=== PATIENT | female | born 1995 | race Hispanic/Latino ===

== ENCOUNTER 2018-06-08 21:28 | Inpatient (IN) | payer MEDICAID, SELFPAY ==
[2018-06-08 22:32] VITALS: BMI 26.5
[2018-06-08] MEDS ORDERED: Acetaminophen 500 MG TAB PO PRN (23:16)
[2018-06-08] MEDS ORDERED: Misoprostol 200 MCG TAB PR PRN (23:16)
[2018-06-08] MEDS ORDERED: Diphenoxylate HCl/Atropine Tablet PO PRN (23:16)
[2018-06-08] MEDS ORDERED: Methylergonovine 0.2 MG/ML VIAL IM PRN (23:16)
[2018-06-08] MEDS ORDERED: Carboprost 250 MCG/ML AMP IM PRN (23:16)
[2018-06-08] MEDS ORDERED: Promethazine HCl 25 MG/ML VIAL IM PRN (23:16)
[2018-06-08] MEDS ORDERED: Lidocaine 1% (PF) 30 ML VIAL SC PRN (23:16)
[2018-06-08] MEDS ORDERED: Ondansetron PF 4 MG/2 ML Vial IVP PRN (23:16)
--- NOTE | 2018-06-08 23:22 | PDOC.LDHP ---
Labor and Delivery H&P Chief complaint: contractions HPI: Mrs. Mora is a 22 y/o 39.5wk by 6.5 wk US presenting to LD for contractions beginning at 1999 She reports painful contractions starting in her back and rolling to her front, pelvic pressure associated. Denies LOF/bleeding, OTERO, CP or visual changes. Routine care up to this point at [facility]. Current gestational age (weeks): 39 (.5) Due date: 06/10/18 Dating criteria: first trimester ultrasound Grav: 2 Para: 1 OB History Details: hx of delivery Pre-E Current complications: none Abnormal US findings: No Current medications: pre-kamlesh vitamins, other (ASA last taken 4 days ago) Previous surgical history: none Allergies/Adverse Reactions: Allergies Allergy/AdvReac Type Severity Reaction Status Date / Time No Known Allergies Allergy Unverified 06/08/18 22:33 Social history: none - Physical Exam Vital signs reviewed and normal: yes General: NAD, breathing through contractions Heart: RRR Lungs: CTAB Abdomen: gravid Extremeties: no edema FHT: category 1 [place] contractions every: 2-3 mins - Vaginal Exam cm dilated: 9 Effacement: 90% Station: 0 - OB Labs Blood type: A RH: positive Antibody Screen: negative HIV: negative RPR: negative HEPSAg: negative 1 hour GCT: negative GBS: negative Urine drug screen: not done Rubella: immune - Assessment L&D Assessment: term patient in labor - Plan Plan: admit to L&D -: - monitor blood pressure closely, currently in normal range, asymptomatic - continuous monitoring - prepare for routine vaginal delivery, recheck in 1 hour/PRN
[2018-06-08 23:39] LABS: Hemoglobin 11.8 g/dL (12.0-16.0); Mean Corpuscular HGB CONC 32.8 g/dL (32.0-36.0); Mean Corpuscular Volume 88.5 fL (78.0-98.0); Mean Platelet Volume 8.1 fL (7.4-10.4); Platelet Count 278 thou/uL (130-400); RBC Distribution Width 12.3 % (11.5-14.5); Red Blood Cell (RBC) Count 4.07 mill/uL (4.20-5.40); White Blood Cell (WBC) Count 9.9 thou/uL (4.8-10.8)
[2018-06-09 00:16] LABS: Syphilis Antibody Nonreactive (Nonreactive); Syphilis Antibody Index 0.04 S/CO (<1.00 Non-Reactive)
[2018-06-09 00:34] LABS: HBSAg Index 0.15 S/CO (0-0.99); Hep B Surf Ag Non-Reactive S/CO (NonReactive)
[2018-06-09] MEDS: NS / Oxytocin 40 units/1000ml 1,000 ML IV PRN ×2 (00:35→02:43)
--- NOTE | 2018-06-09 01:30 | PDOC.OPDEL ---
OB Operative/Delivery Note Delivery Dr/Surgeon: Carlota Gresham [place] Pre-Delivery Diagnosis: active labor Procedure/Post Delivery Dx: spontaneous vaginal delivery Weeks gestation: 39 (.6) Anesthesia: none - Findings A Sex: female - 1 min: 8 - 5 min: 9 - Additional Findings/Plan Placenta delivered: spontaneous Repaired Obstetrical Laceration: none Estimated blood loss: 89 qbl Compilations/Other Findings: This is 22yo F @ 39.6wks who delivered a viable F infant at 0025 on 06/08. Following an uneventful antepartum course, a vigorous female was delivered over an intact perineum in the occipitoanterior position. Anterior Shoulder and then remainder of the body delivered. loose nuchal cord. The head was held down and mouth and nares were bulb suctioned. Cord clamped (after delayed cord clamping) and cut and cord blood collected. Placenta delivered intact (in the [place] presentation) with a 3 vessel cord noted. Fundal massage was performed and the fundus was firm. The cervix and vagina were inspected and found to be free of lacerations. Infant went to nursery in good condition for routine care. Apgars were 8/9 at 1 & 5 minutes, respectively. Patient tolerated delivery well and went to after routine recovery/care. Post delivery plan: routine recovery <Zain Good - Last Filed: 06/09/18 01:28> Attending Addendum - Attending Addendum Date/Time: 06/12/18 0855 I was present for the entire 2nd and 3rd stages of labor to supervise the delivery of MS Gomez's baby. <Anders Gresham - Last Filed: 06/12/18 08:56>
[2018-06-09] MEDS ORDERED: Ondansetron PF 4 MG/2 ML Vial IVP PRN (03:27)
[2018-06-09] MEDS ORDERED: NS / Oxytocin 40 units/1000ml 1,000 ML IV SCH (03:27)
[2018-06-09] MEDS ORDERED: Milk Of Magnesia 30 ML UDCUP PO PRN (03:27)
[2018-06-09] MEDS ORDERED: Bisacodyl 10 MG SUPP PR PRN (03:27)
[2018-06-09] MEDS ORDERED: Lanolin Ointment 7 GM TUBE TOP PRN (03:27)
[2018-06-09] MEDS: Ibuprofen 800 MG TAB PO SCH ×3 (06:08→21:21)
[2018-06-09] MEDS ORDERED: Adacel (T-DAP) 0.5 ML SYRINGE IM ONE (09:00)
[2018-06-09] MEDS: Docusate Calcium (SURFAK) 240 MG CAP PO SCH ×2 (09:46→21:21)
[2018-06-09] MEDS: Ferrous Sulfate 325 MG TAB PO SCH ×2 (09:46→15:25)
[2018-06-09] MEDS: Prenatal Vitamin 1 TAB PO SCH (09:46)
--- NOTE | 2018-06-09 14:00 | PDOC.PP ---
Post Progress Note Post Day #: 0 Subjective: Patient doing well this AM. No significant overnight events. No concerns. She seems eager to go home. PO intake tolerated: yes Flatus: yes Ambulation: yes Vital Signs (12 hours) Temp Pulse Resp BP Pulse Ox 06/09/18 11:55 98.5 F 61 20 91/55 L 06/09/18 08:00 98.4 F 60 20 108/55 L 96 06/09/18 04:40 98.3 F 60 20 97/54 L 97 06/09/18 03:30 98.6 F 60 20 100/56 L 96 Weight Weight 61.689 kg - Physical Examination General: NAD Cardiovascular: no m/r/g, RRR Respiratory: clear to auscultation bilaterally Abdominal: + bowel sounds, lochia (like that of a period), no distention, appropriately TTP Fundus firm & at: below level of umbilicus Neurological: no gross focal deficits Psychiatric: A&Ox3, normal affect Result Diagrams: 06/08/18 23:30 Additional Labs: Post Labs Blood Type A POSITIVE 06/08/18 23:30 Hep Bs Antigen Non-Reactive S/CO (NonReactive) 06/08/18 23:30 (1) (spontaneous vaginal delivery) Code(s): O80 - ENCOUNTER FOR FULL-TERM UNCOMPLICATED DELIVERY Status: Acute (2) Term delivered Code(s): O80 - ENCOUNTER FOR FULL-TERM UNCOMPLICATED DELIVERY Status: Acute - Assessment/Plan 22 year old at 39.5 wks delivered TAGA F infant at 00:25 on 06/09 via Term , delivered - Routine PP care - Plan for d/c home tomorrow morning/afternoon if mom and baby doing well - F/u with PNC in 2 weeks - Opting to breast and bottle feed - No complications - See plan as above Hx of PTD for Pre-E - No complications during this - Continue to monitor BP - No s/s of pre-e PP Dispo: Stable. Plan for d/c home tomorrow <Shelley Olsen - Last Filed: 06/09/18 14:03> Vital Signs (12 hours) Temp Pulse Resp BP Pulse Ox 06/09/18 16:00 98.7 F 68 20 103/60 97 06/09/18 11:55 98.5 F 61 20 91/55 L 06/09/18 08:00 98.4 F 60 20 108/55 L 96 Weight Weight 61.689 kg Result Diagrams: 06/08/18 23:30 Additional Labs: Post Labs Blood Type A POSITIVE 06/08/18 23:30 Hep Bs Antigen Non-Reactive S/CO (NonReactive) 06/08/18 23:30 <Jacques Parker - Last Filed: 06/09/18 19:36> Attending Addendum - Attending Addendum Date/Time: 06/09/181934 I evaluated the patient and discussed the management with Dr. Van. I agree with the Assessment and Plan documented above. <Jacques Parker - Last Filed: 06/09/18 19:36>
[2018-06-10] MEDS: Ibuprofen 800 MG TAB PO SCH ×2 (06:07→14:35)
[2018-06-10 08:15] VITALS: BP 103/54; TEMP 97.8
--- NOTE | 2018-06-10 08:26 | PDOC.PP ---
Post Progress Note Post Day #: 1 Subjective: Patient doing well this AM. No significant overnight events. Ready for d/c home. PO intake tolerated: yes Flatus: yes Ambulation: yes Vital Signs (12 hours) Temp Pulse Resp BP Pulse Ox 06/10/18 08:00 97.8 F 55 L 16 103/54 L 98 06/10/18 00:58 97.6 F 59 L 16 106/69 Weight Weight 61.689 kg - Physical Examination General: NAD Cardiovascular: no m/r/g, RRR Respiratory: clear to auscultation bilaterally Abdominal: + bowel sounds, lochia (minimal), no distention, appropriately TTP Fundus firm & at: below umbilicus Neurological: no gross focal deficits Psychiatric: A&Ox3, normal affect Result Diagrams: 06/08/18 23:30 Additional Labs: Post Labs Blood Type A POSITIVE 06/08/18 23:30 Hep Bs Antigen Non-Reactive S/CO (NonReactive) 06/08/18 23:30 (1) (spontaneous vaginal delivery) Code(s): O80 - ENCOUNTER FOR FULL-TERM UNCOMPLICATED DELIVERY Status: Acute (2) Term delivered Code(s): O80 - ENCOUNTER FOR FULL-TERM UNCOMPLICATED DELIVERY Status: Acute - Assessment/Plan 22 year old at 39.5 wks delivered TAGA F at 00:25 on 06/09 via Term , delivered - Routine PP care - Plan for d/c home tomorrow morning/afternoon if mom and baby doing well - F/u with PNC in 2 weeks - Opting to breast and bottle feed; doing so without difficulties - No complications - See plan as above Hx of PTD for Pre-E - No complications during this - BP remains wnl - No s/s of pre-e PP Dispo: Stable. Plan for d/c home today after bili check for . <Shelley Olsen - Last Filed: 06/10/18 08:26> Weight Weight 61.689 kg Result Diagrams: 06/08/18 23:30 Additional Labs: Post Labs Blood Type A POSITIVE 06/08/18 23:30 Hep Bs Antigen Non-Reactive S/CO (NonReactive) 06/08/18 23:30 <Jacques Parker - Last Filed: 06/11/18 10:29> Attending Addendum - Attending Addendum Date/Time: 06/11/18 1029 I personally evaluated the patient and discussed the management with Dr. Van. I agree with the History, Examination, Assessment and Plan documented above. <Jacques Parker - Last Filed: 06/11/18 10:29>
[2018-06-10] MEDS: Prenatal Vitamin 1 TAB PO SCH (08:44)
[2018-06-10] MEDS: Docusate Calcium (SURFAK) 240 MG CAP PO SCH (08:44)
[2018-06-10] MEDS: Ferrous Sulfate 325 MG TAB PO SCH (08:44)
== END 2018-06-10 15:30 | disposition home or self-care (01) | DRG 807 ==
LOC: L&D/OP 21:28 → L&D 06-09 00:14 → 3SE 06-09 03:51
PROVIDERS: ADMIT Obstetrics & Gynecology; ATTEND Obstetrics & Gynecology
PROC: 10E0XZZ Delivery of Products of Conception, External Approach (ICD-10-PCS; principal; 2018-06-09)
DX: O80 Encounter for full-term uncomplicated delivery (principal); Z37.0 Single live birth; Z3A.39 39 weeks gestation of pregnancy
CPT/HCPCS: 36415; 85027; 86780; 86850; 86900; 86901; 87340; 99285; J2001

== ENCOUNTER 2019-12-18 20:46 | Emergency (ER) | payer MEDICAID, OTHER ==
[2019-12-19 12:49] LABS: SARS-CoV-2 MS2 Positive; SARS-CoV-2 N Gene Negative; SARS-CoV-2 S Gene Negative; SARS-CoV-2 orf1ab Negative
== END 2019-12-18 22:05 | disposition home or self-care (01) ==
LOC: ERS 20:46
DX: R51 Headache (principal); R53.83 Other fatigue; R11.0 Nausea; Z20.828 Contact with and (suspected) exposure to other viral communicable diseases
CPT/HCPCS: 87635; 99284; U0003

== ENCOUNTER 2020-10-29 11:58 | Emergency (ER) | payer MEDICAID ==
[2020-10-29 12:50] LABS: #Lymphocytes 1.6 thou/uL (1.20-3.40); #Monocytes 0.5 thou/uL (0.11-0.59); #Neutrophils 2.9 thou/uL (1.40-6.50); %Eosinophils 0.8 % (0.0-10.0); %Lymphocytes 32.5 % (21.0-51.0); %Monocytes 9.3 % (0.0-10.0); %Neutrophils 56.4 % (42.0-75.0); Hemoglobin 12.9 g/dL (12.0-16.0); Mean Corpuscular HGB CONC 33.4 g/dL (32.0-36.0); Mean Corpuscular Hemoglobin 29.7 pg (27.0-31.0); Mean Corpuscular Volume 89.1 fL (78.0-98.0); Mean Platelet Volume 7.1 fL (7.4-10.4); Platelet Count 257 thou/uL (130-400); RBC Distribution Width 10.8 % (11.5-14.5); Red Blood Cell (RBC) Count 4.34 mill/uL (4.20-5.40); White Blood Cell (WBC) Count 5.1 thou/uL (4.8-10.8)
[2020-10-29 13:08] LABS: BHCG - Serum Negative (NEGATIVE); Pregs Control Background? CLEAR/WHITE (CLR/WHITE); Pregs Control Bar Appear? YES (CONTROL BAR)
[2020-10-29 13:13] LABS: ALT (SGPT) 12 U/L (8-55); AST (SGOT) 16 U/L (5-34); Albumin 4.2 g/dL (3.5-5.0); Alkaline Phosphatase 53 U/L (40-110); Anion Gap 10 mmol/L (10-20); BUN (Urea Nitrogen) 8 mg/dL (7.0-18.7); Bilirubin, Total 0.5 mg/dL (0.2-1.2); Calc. Creatinine Clearance 0 mL/min (70-130); Carbon Dioxide 27 mmol/L (22-29); Chloride 104 mmol/L (98-107); Globulin 3.4 g/dL (2.4-3.5); Glucose 91 mg/dL (70-105); Lipase 22 U/L (8-78); Protein, Total 7.6 g/dL (6.0-8.3); Sodium 137 mmol/L (136-145)
[2020-10-29 13:26] LABS: Bacteria/HPF 2+ HPF (None Seen); Bilirubin Negative (Negative); Blood, Urine Negative (Negative); Clarity Turbid (Clear); Glucose, Urine (Dipstick) Normal (Negative); Ketone, Urine Negative (Negative); Leukocyte 250 Leu/uL (Negative); Nitrite Negative (Negative); Protein, Urine (Dipstick) Negative (Neg-Trace); RBC/HPF 0-3 HPF (0-3); Specific Gravity, Urine 1.014 (1.002-1.036); Squamous Epithelial 21-50 HPF (0-3); Urobilinogen Normal mg/dL (Less than 2); WBC/HPF 0-3 HPF (0-3); pH, Urine 7.5 (5.0-9.0)
== END 2020-10-29 14:55 | disposition home or self-care (01) ==
LOC: ERS 11:58
DX: K59.00 Constipation, unspecified (principal); R19.7 Diarrhea, unspecified; R11.2 Nausea with vomiting, unspecified
CPT/HCPCS: 36415; 80053; 81003; 81015; 83690; 84703; 85025; 99284